=== PATIENT | male | born 1955 | race Caucasian/White ===

== ENCOUNTER 2016-06-15 13:54 | Emergency (ER) | payer OTHER ==
[2016-06-15 14:31] LABS: HEMOGLOBIN 16.5 gm/dl (14.0-17.5); RED BLOOD COUNT 4.66 M/UL (4.20-5.50); WHITE BLOOD COUNT 7.8 K/UL (4.5-11.0)
== END 2016-06-15 19:45 | disposition left against medical advice (07) ==
LOC: ER1 13:54
PROVIDERS: Emergency Medicine
DX: I95.9 Hypotension, unspecified (principal)
CPT/HCPCS: 36415; 70450; 71010; 72125; 80053; 82550; 82553; 82962; 83605; 83690; 83874; 83880; 84484; 85025; 85610; 85730; 87040; 93005; 99291

== ENCOUNTER → 2016-09-12 | Outpatient (CLI) | payer OTHER | LOC: HEART 5 10:59 | DX: J44.9 Chronic obstructive pulmonary disease, unspecified (principal); J30.9 Allergic rhinitis, unspecified; F41.9 Anxiety disorder, unspecified; M19.90 Unspecified osteoarthritis, unspecified site; J45.909 Unspecified asthma, uncomplicated; D68.9 Coagulation defect, unspecified; R07.9 Chest pain, unspecified; R94.2 Abnormal results of pulmonary function studies; F17.210 Nicotine dependence, cigarettes, uncomplicated | CPT/HCPCS: 94060; 94729 ==

== ENCOUNTER → 2016-09-13 | Outpatient (CLI) | payer OTHER | LOC: HEART 5 10:56 | DX: I27.2 Other secondary pulmonary hypertension (principal); J30.9 Allergic rhinitis, unspecified; F41.9 Anxiety disorder, unspecified; D68.9 Coagulation defect, unspecified; R07.9 Chest pain, unspecified; J44.9 Chronic obstructive pulmonary disease, unspecified; Z87.09 Personal history of other diseases of the respiratory system; Z86.2 Personal history of diseases of the blood and blood-forming organs and certain disorders involving the immune mechanism; F17.200 Nicotine dependence, unspecified, uncomplicated; I10 Essential (primary) hypertension; R06.00 Dyspnea, unspecified; I51.7 Cardiomegaly; I08.1 Rheumatic disorders of both mitral and tricuspid valves | CPT/HCPCS: 93306 ==

== ENCOUNTER → 2020-06-07 | Outpatient (CLI) | payer MEDICARE ==
[~2020-06-07] MED LIST: ASPIRIN81 MG PO; BREO ELLIPTA 11 EACH INH; FLOMAX0.4 MG PO; FLONASE 0.05% N16 GM; FOLIC ACID 1 MG1 MG PO; IBUPROFEN400 MG PO; IPRAT-ALBUT 0.5-3 ML INH; LIPITOR TAB 2020 MG PO; LISINOPRIL20 MG PO; LOPRESSOR 50 MG50 MG PO; MELOXICAM15 MG PO; NEURONTIN300 MG PO; PLETAL 100 MG100 MG PO; PROVENTIL HFA 61 INH INH; SPIRIVA18 MCG INH; SYMBICORT 160-1 INHA INH; TAB-A-VITE TA400 MC1 PO; TRENTAL 400 MG400 MG PO; VANCOMYCIN HCL125 MG PO; XARELTO20 MG PO; ZANAFLEX2 MG PO; ZOLOFT50 MG PO
== END ==
LOC: KOH-I 11:00
DX: M79.605 Pain in left leg (principal)
CPT/HCPCS: 93970

== ENCOUNTER → 2020-07-19 | Outpatient (CLI) | payer MEDICARE | LOC: KOH-I 16:30 | DX: R91.1 Solitary pulmonary nodule (principal) | CPT/HCPCS: 71250 ==

== ENCOUNTER 2021-02-18 13:19 | Inpatient (IN) | payer MEDICARE ==
[~2021-02-18] VITALS: Ht 182.9 cm; Wt 74.8 kg
[~2021-02-18 13:19] MED LIST changes: +CILOSTAZOL50 MG PO; -NEURONTIN300 MG PO; +NEURONTIN600 MG PO; -PLETAL 100 MG100 MG PO
[2021-02-18 13:54] LABS: HEMOGLOBIN 12.9 gm/dl (14.0-17.5); RED BLOOD COUNT 3.52 M/UL (4.20-5.50); WHITE BLOOD COUNT 20.6 K/UL (4.5-11.0)
[2021-02-18 14:22] LABS: BUN/CREATININE RATIO 13 (0-10)
[2021-02-18] MEDS ORDERED: VITAMIN D21250 MCG PO (17:37)
[2021-02-18] MEDS ORDERED: MELOXICAM15 MG PO (17:38)
[2021-02-18] MEDS ORDERED: METOPROLOL TART50 MG PO (17:38)
[2021-02-18] MEDS ORDERED: LISINOPRIL20 MG PO (17:38)
[2021-02-18] MEDS ORDERED: TRAMADOL HCL50 MG PO (17:39)
[2021-02-19 06:46] LABS: WHITE BLOOD COUNT 15.9 K/UL (4.5-11.0)
[2021-02-19 06:49] LABS: RED BLOOD COUNT 3.1 M/UL (4.20-5.50)
[2021-02-19] MEDS ORDERED: ROCEPHIN (10:30)
[2021-02-19] MEDS ORDERED: PROTONIX DRIP (10:30)
[2021-02-19] MEDS ORDERED: NORMAL SALINE (10:30)
[2021-02-19] MEDS ORDERED: [UNRECOGNIZED DRUG - REMARK] (10:35)
== END 2021-02-19 19:08 | disposition short-term general hospital (02) | DRG 871 ==
LOC: ER1 13:19 → M/S 21:56 → CDU 21:56 → M/S 22:30 → PROG CARE 02-19 11:30
PROVIDERS: Internal Medicine; Student in an Organized Health Care Education/Training Program; ADMIT Internal Medicine
DX: A41.51 Sepsis due to Escherichia coli [E. coli] (principal); G93.41 Metabolic encephalopathy; K92.2 Gastrointestinal hemorrhage, unspecified; N17.9 Acute kidney failure, unspecified; N39.0 Urinary tract infection, site not specified; D68.9 Coagulation defect, unspecified; E87.1 Hypo-osmolality and hyponatremia; Z20.822 Contact with and (suspected) exposure to COVID-19; F10.10 Alcohol abuse, uncomplicated; E86.0 Dehydration; D69.6 Thrombocytopenia, unspecified; K70.9 Alcoholic liver disease, unspecified; J44.9 Chronic obstructive pulmonary disease, unspecified; I10 Essential (primary) hypertension; F17.210 Nicotine dependence, cigarettes, uncomplicated; Z86.73 Personal history of transient ischemic attack (TIA), and cerebral infarction without residual deficits; Z86.711 Personal history of pulmonary embolism; Z79.01 Long term (current) use of anticoagulants; Z86.718 Personal history of other venous thrombosis and embolism; Z91.14 Patient's other noncompliance with medication regimen; Z82.49 Family history of ischemic heart disease and other diseases of the circulatory system
CPT/HCPCS: 36415; 36600; 51702; 70450; 71045; 80048; 80053; 81001; 82140; 82272; 82436; 82550; 82553; 82803; 83605; 83874; 84133; 84300; 84439; 84443; 84484; 84550; 85018; 85025; 85379; 85610; 85730; 86140; 87040; 87077; 87086; 87186; 89050; 93005; 96374; 99285; C9113; J0696; J2060; J3411; J3475; J7030; U0002